=== PATIENT | female | born 1990 | race Caucasian/White ===

== ENCOUNTER 2017-04-11 19:17 | Emergency (ER) | payer SELFPAY ==
[~2017-04-11] VITALS: Ht 162.6 cm; Wt 99.8 kg
--- NOTE | ~2017-04-11 | CR63 ---
[facility] A Service of [facility] & [facility] RADIOLOGY TEXT RESULTS PATIENT: ASCENCION LEWIS LOCATION: SED : [birth year] UNIT #: [id number] AGE: [address]: MARTY YOON SEX: F ORDER DR: [id number] [place] [id number] MR#: [id number] Acc #: [id number] NAME: ASCENCION LEWIS : 1990 SEX: F STUDY DATE/TIME: 04/11/2017 21:26 UNIT: SED ROOM: STUDY DESCRIPTION: CR Chest 2 View Attending Physician: Marty Yoon Aprn Ordering Physician: Marty Yoon Aprn Primary Care Physician: Jake Chang M.D. MEDICAL IMAGING REPORT This report is preliminary unless electronic signature is present. EXAM Chest x-ray, 04/11 21:26 INDICATION Sore throat, congestion and fever that started this morning. FINDINGS 2 views of the chest are compared with 03/29/2013. Cardiac and mediastinal contours are normal. The lungs are clear. No pneumothorax. IMPRESSION No active disease and no change from prior. Dictated by... Jose Luis Joyner Jr., M.D. THIS IS AN ELECTRONICALLY VERIFIED REPORT Jose Luis Joyner Jr., M.D. at 04/15/2017 7:11 AM TORSTEN/yasemin TD: 04/12/2017 08:35 JOB #: [id number] MEDICAL IMAGING REPORT Page 1 of 1
[~2017-04-11 19:17] MED LIST: BACITRACIN30 GM TOP; BENTYL10 MG PO; CELEXA PO; CIPRO PO; DESYREL150 M1 PO; DICLOFENAC PO; E-MYCIN250 MG PO; ERYTHROMYCIN500 MG PO; FLEXERIL PO; IBUPROFEN PO; KEFLEX PO; MEDROL PO; MOBIC PO; NAPROXEN PO; NO MEDICATIONS; NORCO 5/325 TAB1 TAB PO; NORFLEX100 M1 PO; PHENERGAN25 MG PO; PREDNISONE PO; SUDAFED PO; ULTRAM PO; VIBRAMYCIN100 M1 PO; VOLTAREN50 MG PO; ZITHROMAX PO
[2017-04-11] MEDS ORDERED: DESYREL50 MG PO (19:30)
[2017-04-11] MEDS ORDERED: CELEXA10 MG PO (19:31)
== END 2017-04-11 22:33 | disposition home or self-care (01) ==
LOC: SED 19:17
DX: J02.9 Acute pharyngitis, unspecified (principal); J45.909 Unspecified asthma, uncomplicated; Z79.899 Other long term (current) drug therapy; Z88.0 Allergy status to penicillin; Z88.2 Allergy status to sulfonamides; Z88.5 Allergy status to narcotic agent; Z88.8 Allergy status to other drugs, medicaments and biological substances
CPT/HCPCS: 71020; 87651; 99283